=== PATIENT | female | born 1960 | race Caucasian/White ===

== ENCOUNTER 2017-04-11 03:33 | Emergency (ER) | payer SELFPAY ==
[2017-04-11] MEDS ORDERED: ROCURONIUM BROMIDE INJ 50 MG/5 ML VIAL IV ONE ×2 (03:40→06:00)
[2017-04-11] MEDS: MAGNESIUM SULFATE/D5W 100 ML IV SCH ×2 (03:40→04:00)
[2017-04-11] MEDS ORDERED: FENTANYL CITRATE INJ/PF 100 MCG/2 ML AMPUL ONE ×2 (03:44→06:26)
[2017-04-11] MEDS ORDERED: PROPOFOL 100 ML IV ONE ×2 (03:44→06:40)
[2017-04-11] MEDS ORDERED: METHYLPREDNISOLONE INJ 125 MG/2 ML SDV IV ONE (03:45)
[2017-04-11] MEDS ORDERED: IPRATROPIUM/ALBUTEROL 0.5-2.5 MG/3 ML AMPUL NEB ONE (03:45)
[2017-04-11] MEDS ORDERED: NORMAL SALINE 1000 ML 1,000 ML IV ONE (03:46)
--- NOTE | 2017-04-11 03:49 | ER Document Report ---
ED General - General Stated Complaint: RESPITORY DISTRESS Time Seen by Provider: 04/11/17 03:44 Notes: 56-year-old female with unknown medical history but most likely asthma per EMS presents with respiratory distress and hypoxia. She was sat down with a saturation in the 40s. Did not tolerate CPAP so brought him with facemask. They have no meds and no history and no family. Please note history limited by patient acuity. TRAVEL OUTSIDE OF THE [place] IN LAST 30 DAYS: No - Related Data Allergies/Adverse Reactions: No Known Allergies Allergy (Verified 12/01/14 18:53) Past Medical History - Social History Smoking Status: Current Every Day Smoker Family History: Reviewed & Not Pertinent, Other - Past Medical History Cardiac Medical History: Reports: Hx Hypertension Psychiatric Medical History: Reports: Hx Bipolar Disorder Past Surgical History: Reports: Hx Appendectomy, Hx Hysterectomy Review of Systems - Review of Systems Notes: REVIEW OF SYSTEMS is limited by patient acuity PHYSICAL EXAMINATION General: Acute distress horrible appearing Head: Atraumatic, normocephalic ENT: Mouth normal, oropharynx moist, no exudates or tonsillar enlargement Eyes: Conjunctiva normal, pupils equal, lids normal Neck: No JVD, supple, no guarding CVS: Normal rate, regular rhythm, no murmurs Resp: Heaving respirations, bradycardia apneic, coarse breath sounds with little air movement bilaterally GI: Nondistended, soft, no tenderness to palpation, no rebound or guarding Ext: No deformities, no edema, normal range of motion in upper and lower ext Back: No CVA or midline TTP Skin: N cool and mottled Lymphatic: No lymphadeopathy noted Neuro: A encephalopathic not responding. Moving all extremities with intermittent flailing movements. Physical Exam - Vital signs Vitals: Resp Pulse Ox 42 H 96 04/11/17 03:37 04/11/17 03:37 Course - Re-evaluation Re-evalutation: 04/11/17 03:48 Patient critically ill seen immediately by me upon arrival. Respiratory distress with decreased air movement and reported history of asthma. Patient was hypertensive and is wearing Nitropaste. She is moving very little air. She was given IV ketamine and placed on CPAP for preoxygenation. Given the chances of severe asthma I also gave her a dose of intramuscular epinephrine. Patient responded well to ketamine, oxygenated nicely and was intubated without issue. Please see procedure note. Workup will include labs chest x-ray EKG. Will treat with propofol drip, fentanyl pushes for discomfort, and give steroids and in-line nebulizer treatments as well as magnesium for severe asthma exacerbation. 04/11/17 04:20 Patient reassessed 3 times between 4 AM at 4:20 AM. Initially she was quite stable on the ventilator. I heard left-sided breath sounds decreased but she had good lung sliding on my ultrasound. Chest x-ray is pending. Labs show a severe respiratory acidosis. At this point her heart rate is still in the 170s and she has a stable blood pressure with a saturation of 92%. She is on appropriate Yanni settings for asthma. An EKG is difficult to interpret so I slowed the machine down in order to space apart the complexes and found that the patient was in SVT. She was cardioverted with a single dose of adenosine but flipped back into SVT within 5 minutes. 04/11/17 05:00 Patient was given verapamil 2 and did not convert. Her vitals remained normal in terms of blood pressure being high. She was then cardioverted electrically twice without conversion. Will try diltiazem drip. Care will transition to Dr. Merida who accepted the patient. - Vital Signs Vital signs: Temp Pulse Resp BP Pulse Ox 99.1 F 19 155/95 H 92 04/11/17 04:05 04/11/17 04:05 04/11/17 04:01 04/11/17 04:05 - Laboratory Result Diagrams: 04/11/17 03:35 04/11/17 03:35 Laboratory results interpreted by me: 04/11/17 04/11/17 04/11/17 03:35 03:35 03:35 WBC 18.9 H RDW 14.4 H Seg Neutrophils % 39.0 L Lymphocytes % 47.1 H Absolute Lymphocytes 8.9 H Absolute Monocytes 2.1 H VBG pH VBG pCO2 Sodium 145.3 H Glucose 243 H NT-Pro-B Natriuret Pep 4280 H 04/11/17 03:35 WBC RDW Seg Neutrophils % Lymphocytes % Absolute Lymphocytes Absolute Monocytes VBG pH 6.91 L* VBG pCO2 129.5 H* Sodium Glucose NT-Pro-B Natriuret Pep Procedures - Intubation Orotracheal Time of Intubation: 04:00 Mallampati Classification: Class 2 Medications: Ketamine, Other - Rocuronium Intubation method: Orotracheal Blade type: Huey Blade size: 3 Equipment used: Glidescope ETT size: 7.5 ETT secured at: Teeth ETT secured at (cm): 22 Breath Sounds after Intubation: Right greater than left End tidal CO2 confirmed: Yes Ventilator settings: SIMV - See chart for exact settings - Additional Procedures Cardioversion/Defib Time performed: 04:45 Additional Procedures: Cardioversion/defib - Patient was cardioverted using 150 J then 200 J. Total of 2 attempts. Rate/rhythm did not change. Tolerated well. Sedated with propofol and intubated prior to procedure. Critical Care Note - Critical Care Note Total time excluding time spent on procedures (mins): 80 Comments: The above patient is critically ill. Not including procedures, but including direct re-evaluations, speaking with patient and/or consultants, interpreting results, and documenting, I spent the total amount of minute listed listed above on critical care time Discharge - Discharge Clinical Impression: Supraventricular tachycardia, Asthma with acute exacerbation in adult Hypercapnic respiratory failure Qualifiers: Chronicity: acute Qualified Code(s): J96.02 - Acute respiratory failure with hypercapnia Admitting Provider: [place] [facility] Admitted: ICU
[2017-04-11 03:51] LABS: ABSOLUTE BASOPHILS # (AUTO) 0.1 10^3/uL (0.0-0.2); ABSOLUTE EOSINOPHILS # (AUTO) 0.5 10^3/uL (0.0-0.6); ABSOLUTE LYMPHOCYTES (AUTO) 8.9 10^3/uL (0.5-4.7); ABSOLUTE MONOCYTES (AUTO) 2.1 10^3/uL (0.1-1.4); ABSOLUTE NEUT (AUTO) 7.4 10^3/uL (1.7-8.2); BASOPHILS % (AUTO) 0.3 % (0-2); EOSINOPHILS % (AUTO) 2.7 % (0-6); HEMOGLOBIN 13.5 g/dL (12.0-15.5); HGB HCT DIFFERENCE -1.5; LYMPHOCYTES % (AUTO) 47.1 % (13-45); MEAN CORPUSCULAR HEMOGLOBIN 27.9 pg (27.0-33.4); MEAN CORPUSCULAR HGB CONC 32.2 g/dL (32.0-36.0); MEAN CORPUSCULAR VOLUME 87 fl (80-97); MONOCYTES % (AUTO) 10.9 % (3-13); RED BLOOD COUNT 4.85 10^6/uL (3.72-5.28); RED CELL DISTRIBUTION WIDTH 14.4 % (11.5-14.0); WHITE BLOOD COUNT 18.9 10^3/uL (4.0-10.5)
[2017-04-11] MEDS ORDERED: ALBUTEROL SULFATE 0.083% NEB 2.5 MG/3 ML AMPUL NEB ONE (03:55)
[2017-04-11 04:02] LABS: VENOUS BLOOD BASE EXCESS -10.8 mmol/L; VENOUS BLOOD HCO3 25.3 mmol/L (20-32)
[2017-04-11 04:04] LABS: VENOUS BLOOD PCO2 129.5 mmHg (35-63); VENOUS BLOOD PH 6.91 (7.30-7.42)
[2017-04-11] MEDS ORDERED: ADENOSINE INJ/PF 6 MG/2 ML SDV IV ONE (04:11)
[2017-04-11 04:14] LABS: ANION GAP 17 (5-19); BLOOD UREA NITROGEN 12 mg/dL (7-20); CALCIUM 9.7 mg/dL (8.4-10.2); CARBON DIOXIDE 22 mmol/L (22-30); CHLORIDE 106 mmol/L (98-107); CREATININE RESULT 0.72 mg/dL (0.52-1.25); GLUCOSE 243 mg/dL (75-110); POTASSIUM 3.8 mmol/L (3.6-5.0); SODIUM 145.3 mmol/L (137-145)
[2017-04-11] MEDS ORDERED: VERAPAMIL HCL INJ/PF 5 MG/2 ML SDV IV ONE ×2 (04:20→04:23)
[2017-04-11 04:35] LABS: TROPONIN I 0.052 ng/mL
--- NOTE | 2017-04-11 04:46 | RADIOLOGY REPORT (SQ) ---
EXAM DESCRIPTION: CHEST SINGLE VIEW COMPLETED DATE/TIME: 04/11/2017 4:03 am REASON FOR STUDY: intub asthma? COMPARISON: None. EXAM PARAMETERS: NUMBER OF VIEWS: One view. TECHNIQUE: Single frontal radiographic view of the chest acquired. RADIATION DOSE: NA LIMITATIONS: None. FINDINGS: LUNGS AND PLEURA: Moderate mixed interstitial and airspace opacity with lower lobe predomi nance extensively of both lung valadez. MEDIASTINUM AND HILAR STRUCTURES: No masses. Contour normal. HEART AND VASCULAR STRUCTURES: Heart normal in size. Normal vasculature. BONES: No acute findings. HARDWARE: Adequate appearing endotracheal tube. Likely adequate NG tube. OTHER: No other significant finding. IMPRESSION: Extensive moderate mixed interstitial and airspace opacity of both lung valadez. Differe ntial diagnosis includes pulmonary edema, multifocal pneumonia, and/or chronic interstitial lung dise ase. Lines and tubes. TECHNICAL DOCUMENTATION: JOB ID: [id number]
[2017-04-11] MEDS ORDERED: DILTIAZEM HCL/D5W 125 ML IV PRN (04:59)
[2017-04-11] MEDS ORDERED: DILTIAZEM HCL INJ 25 MG/5 ML VIAL IV ONE (04:59)
[2017-04-11 05:05] LABS: ADD ON TESTING BLD IN LAB ACKNOWLEDGE
[2017-04-11 05:12] LABS: ALANINE AMINOTRANSFERASE 40 U/L (9-52); ALKALINE PHOSPHATASE 199 U/L (38-126); ASPARTATE AMINO TRANSFERASE 47 U/L (14-36); BILIRUBIN,DIRECT 0.6 mg/dL (0.0-0.4); BILIRUBIN,TOTAL 0.9 mg/dL (0.2-1.3); TOTAL PROTEIN 6.6 g/dL (6.3-8.2)
[2017-04-11] MEDS ORDERED: METOPROLOL TARTRATE PF/INJ 5 MG/5 ML SDV IV ONE (05:34)
[2017-04-11] MEDS ORDERED: EPINEPHRINE INJ/PF 1 MG/1 ML AMPULE ONE (05:37)
[2017-04-11] MEDS ORDERED: KETAMINE HCL INJ 500 MG/10 ML VIAL ONE (05:40)
[2017-04-11 06:22] VITALS: BP 164/94
--- NOTE | 2017-04-11 08:49 | Progress Note ---
Provider Note Provider Note: April 11, 2017: At 5:27 AM this morning, prior to my seeing the patient, I was contacted by phone by the evaluating and treating emergency room physician. By his description, despite cardioversion 3 along with multiple medications, she remained in SVT. He stated that he planned to transfer patient to a tertiary center. I concurred. Patient was subsequently airlifted to tertiary center.
--- NOTE | 2017-04-11 11:12 | EKG REPORT ---
SEVERITY:- ABNORMAL ECG - SINUS TACHYCARDIA LEFT ATRIAL ABNORMALITY ANTERIOR INFARCT, AGE INDETERMINATE : Confirmed by: Karie Ivy MD 11-Apr-2017 11:11:57
--- NOTE | 2017-04-11 11:12 | EKG REPORT ---
SEVERITY:- ABNORMAL ECG - SUPRAVENTRICULAR TACHYCARDIA PROBABLE LEFT VENTRICULAR HYPERTROPHY CONSIDER ANTERIOR INFARCT : Confirmed by: Karie Ivy MD 11-Apr-2017 11:12:03
--- NOTE | 2017-04-11 11:13 | EKG REPORT ---
SEVERITY:- ABNORMAL ECG - SINUS TACHYCARDIA FIRST DEGREE AV BLOCK PROBABLE LEFT ATRIAL ABNORMALITY CONSIDER ANTERIOR INFARCT BORDERLINE ST DEPRESSION, ANTEROLATERAL LEADS PROLONGED QT INTERVAL : Confirmed by: Karie Ivy MD 11-Apr-2017 11:12:43
== END 2017-04-11 06:51 | disposition short-term general hospital (02) ==
LOC: ER 03:33 → EH 04:50 → UNDOADMIN 04:50 → UNDODISIN 06:50 → EH 06:51
PROC: 0BH18EZ Insertion of Endotracheal Airway into Trachea, Via Natural or Artificial Opening Endoscopic (ICD-10-PCS; principal; 2017-04-11)
DX: I47.1 Supraventricular tachycardia (principal); J96.02 Acute respiratory failure with hypercapnia; J45.901 Unspecified asthma with (acute) exacerbation; E87.2 Acidosis; I10 Essential (primary) hypertension; F17.200 Nicotine dependence, unspecified, uncomplicated; R00.1 Bradycardia, unspecified
CPT/HCPCS: 93005 ×2; 94640 ×2; 99291; 99292; 96375; 96365; 96367; 36415; 83735; 85025; 80076; 80048; 84484; 82803; 83880; 71010; 93010; 31500; J3490 ×6; J0171; J3010; J2704; J2930; J3475; J7030; J0153; J7620; 94002

== ENCOUNTER 2017-04-17 20:41 | Emergency (ER) | payer SELFPAY ==
[2017-04-17] MEDS ORDERED: NYSTATIN/DEXAMETH/DIPHEN SUSP 120 ML PO ONE ×2 (22:12→22:49)
--- NOTE | 2017-04-17 22:16 | ER Document Report ---
ED ENT - General Chief Complaint: Sore Throat Stated Complaint: SORE THROAT Time Seen by Provider: 04/17/17 21:35 Mode of Arrival: Ambulatory Information source: Patient TRAVEL OUTSIDE OF THE [place] IN LAST 30 DAYS: No - HPI Patient complains to provider of: Throat problem Onset/Duration: Gradual Quality of pain: Achy Severity: Moderate Pain Level: 3 Associated symptoms: Sore throat Similar symptoms previously: No Recently seen / treated by doctor: Yes Notes: Patient is a 56-year-old female presenting to the emergency room complaining of throat and mouth pain that has been going on for the past 4-5 days, she was seen at this emergency room on 04/11/2017, at which point in time she was in respiratory distress requiring intubation and transfer to tertiary care center for persistent SVT, she states she has not smoked since then, but began invading instead, since then she has developed increased redness with white spots in the back of her throat, increased pain, difficulty swallowing, and pain to her tongue as well - Related Data Allergies/Adverse Reactions: vancomycin Allergy (Verified 04/17/17 21:11) Past Medical History - General Information source: Patient - Social History Smoking Status: Former Smoker Family History: Reviewed & Not Pertinent, Other - Past Medical History Cardiac Medical History: Reports: Hx Hypertension Pulmonary Medical History: Reports: Hx Asthma Renal/ Medical History: Denies: Hx Peritoneal Dialysis Psychiatric Medical History: Reports: Hx Bipolar Disorder Past Surgical History: Reports: Hx Appendectomy, Hx Hysterectomy Review of Systems - Review of Systems Constitutional: No symptoms reported EENT: See HPI Cardiovascular: No symptoms reported Respiratory: No symptoms reported Gastrointestinal: No symptoms reported Genitourinary: No symptoms reported Female Genitourinary: No symptoms reported Musculoskeletal: No symptoms reported Skin: No symptoms reported Hematologic/Lymphatic: No symptoms reported Neurological/Psychological: No symptoms reported -: Yes All other systems reviewed and negative Physical Exam - Vital signs Vitals: Temp Pulse Resp BP Pulse Ox 98.1 F 62 14 142/66 H 98 04/17/17 21:13 04/17/17 21:13 04/17/17 21:13 04/17/17 21:13 04/17/17 21:13 - Notes Notes: - General General appearance: Appears well, Alert In distress: None - HEENT Head: Normocephalic, Atraumatic Eyes: Normal Conjunctiva: Normal Extraocular movements intact: Yes Eyelashes: Normal Pupils: PERRL - Respiratory Respiratory status: No respiratory distress - Cardiovascular Rhythm: Regular - Abdominal Inspection: Normal - Back Back: Normal - Extremities General upper extremity: Normal inspection General lower extremity: Normal inspection - Neurological Neuro grossly intact: Yes Orientation: AAOx4 Chadron Coma Scale Eye Opening: Spontaneous Essence Coma Scale Verbal: Oriented Chadron Coma Scale Motor: Obeys Commands Chadron Coma Scale Total: 15 - Psychological Associated symptoms: Normal affect, Normal mood - Skin Skin Temperature: Warm Skin Moisture: Dry Skin Color: Normal - HEENT Mouth/Lips: Other - Several enlarged taste buds on tongue Pharynx: Erythema, Exudate. No: Potential airway comprom. Course - Re-evaluation Re-evalutation: 04/17/17 22:43 Patient with posterior pharynx erythema with exudates, possible strep throat infection, she was recently intubated, therefore was started on antibiotics, and as well as given a prescription for Magic mouthwash, advised to follow-up with her primary care provider, return if symptoms worsen, patient acknowledges understanding and agreement with this plan - Vital Signs Vital signs: Temp Pulse Resp BP Pulse Ox 98.1 F 62 14 142/66 H 98 04/17/17 21:13 04/17/17 21:13 04/17/17 21:13 04/17/17 21:13 04/17/17 21:13 Discharge - Discharge Clinical Impression: Strep pharyngitis Condition: Stable Disposition: HOME, SELF-CARE Instructions: Sore Throat ([facility]), Strep Throat ([facility]) Additional Instructions: Follow up with your primary care provider in one to 2 days. Return to the emergency room immediately if symptoms worsen or any additional concerns. Prescriptions: Nystatin/Dexameth/Diphen [Magic Mouthwash ([facility] Formula) Susp] 5 ml PO QID #120 ml Penicillin V Potassium [Penicillin Vk 500 mg Tablet] 500 mg PO BID #20 tablet Forms: Smoking Cessation Education
[2017-04-18 03:16] VITALS: BP 154/53
== END 2017-04-17 22:55 | disposition home or self-care (01) ==
LOC: ER 20:41
DX: J02.0 Streptococcal pharyngitis (principal); K08.89 Other specified disorders of teeth and supporting structures; J02.9 Acute pharyngitis, unspecified; Z87.891 Personal history of nicotine dependence
CPT/HCPCS: 99282; J3490

== ENCOUNTER 2017-05-07 20:12 | Emergency (ER) | payer SELFPAY ==
[2017-05-07] MEDS ORDERED: GABAPENTIN 300 MG CAPSULE PO ONE (20:51)
[2017-05-07] MEDS ORDERED: CLONIDINE 0.1 MG/24 HR PATCH.TDWK TD ONE (20:51)
[2017-05-07] MEDS ORDERED: ONDANSETRON 4 MG TAB.RAPDIS PO ONE (21:08)
[2017-05-07] MEDS ORDERED: DIAZEPAM 5 MG TABLET PO ONE (21:09)
--- NOTE | 2017-05-07 21:09 | ER Document Report ---
ED General - General Chief Complaint: Back Pain Stated Complaint: BACK AND LEG PAIN Time Seen by Provider: 05/07/17 20:22 Notes: Patient is a 56 year old female with a history of opiate dependence currently on Suboxone therapy who ran out of her Suboxone 2 days ago. States that her prescription was scheduled to run out on the but her primary doctor canceled her appointment for refills and has not rescheduled until Wednesday of next week. States she is been having severe tremulousness, nausea, vomiting and diffuse body pain for the last 3 days it has gotten increasingly worse. She has not tried anything to relieve her symptoms nothing worsens her symptoms. She states this feels similar to when she has run out of opiates in the past. Denies any suicidal homicidal ideation. Denies any chest pain or shortness of breath. Denies getting illicit drugs to resolve her symptoms. TRAVEL OUTSIDE OF THE [place] IN LAST 30 DAYS: No - Related Data Allergies/Adverse Reactions: vancomycin Allergy (Verified 04/17/17 21:11) Past Medical History - General Information source: Patient - Social History Smoking Status: Current Every Day Smoker Frequency of alcohol use: None Drug Abuse: None Lives with: Spouse/Significant other Family History: Reviewed & Not Pertinent, Other Patient has suicidal ideation: No Patient has homicidal ideation: No - Past Medical History Cardiac Medical History: Reports: Hx Hypertension Pulmonary Medical History: Reports: Hx Asthma Renal/ Medical History: Denies: Hx Peritoneal Dialysis Psychiatric Medical History: Reports: Hx Bipolar Disorder Past Surgical History: Reports: Hx Appendectomy, Hx Hysterectomy Review of Systems - Review of Systems Notes: Constitutional: Negative for fever. HENT: Negative for sore throat. Eyes: Negative for visual changes. Cardiovascular: Negative for chest pain. Respiratory: Negative for shortness of breath. Gastrointestinal: Negative for abdominal pain, positive for vomiting and diarrhea Genitourinary: Negative for dysuria. Musculoskeletal: Negative for back pain. Skin: Negative for rash. Neurological: Negative for headaches, weakness or numbness. 10 point ROS negative except as marked above and in HPI. Physical Exam - Vital signs Vitals: Temp Pulse Resp BP Pulse Ox 98.3 F 104 H 20 190/90 H 97 05/07/17 20:20 05/07/17 20:20 05/07/17 20:20 05/07/17 20:20 05/07/17 20:20 Interpretation: Hypertensive Notes: PHYSICAL EXAMINATION: GENERAL: Appears uncomfortable but no acute distress HEAD: Atraumatic, normocephalic. EYES: Pupils equal round and reactive to light, extraocular movements intact, sclera anicteric, conjunctiva are normal. ENT: nares patent, oropharynx clear without exudates. Moderately dry mucous membranes. NECK: Normal range of motion, supple without lymphadenopathy LUNGS: Breath sounds clear to auscultation bilaterally and equal. No wheezes rales or rhonchi. HEART: Regular rate and rhythm without murmurs ABDOMEN: Soft, nontender, normoactive bowel sounds. No guarding, no rebound. No masses appreciated. EXTREMITIES: Normal range of motion, no pitting or edema. No cyanosis. NEUROLOGICAL: No focal neurological deficits. Moves all extremities spontaneously and on command. PSYCH: Anxious, tremulous SKIN: Warm, Dry, normal turgor, no rashes or lesions noted. Course - Re-evaluation Re-evalutation: 05/07/17 21:08 Patient presents with symptoms consistent with an acute opiate withdrawal after she ran out of Suboxone 3 days ago. She is tremulous, tachycardic, hypertensive , appears quite uncomfortable. We unfortunately do not have Suboxone here in the emergency department. I have informed the patient I am not licensed Suboxone provider there are none in this emergency department. Her [place] controlled substance database does correlate with her report that she is out of Suboxone. Will provide gabapentin, clonidine, and work toward some symptomatic control. 05/07/17 22:03 Patient has had resolution of her withdrawal symptoms after menstruation of clonidine, gabapentin and Valium. I had an extensive conversation with this patient about her chronic opiate dependence and encouraged her to continue Suboxone therapy as she admits that she was considering getting heroin today when she could not get Suboxone. Again, patient is not drug-seeking here in the emergency department only asking for relief from her withdrawal symptoms. She plans to follow-up with her provider on Wednesday the refill her Suboxone. At this time will discharge with return precautions and follow-up recommendations. Verbal discharge instructions given a the bedside and opportunity for questions given. Medication warnings reviewed. Patient is in agreement with this plan and has verbalized understanding of return precautions and the need for primary care follow-up in the next 24-72 hours. - Vital Signs Vital signs: Temp Pulse Resp BP Pulse Ox 98.3 F 104 H 21 H 172/80 H 98 05/07/17 20:20 05/07/17 20:20 05/07/17 22:03 05/07/17 22:31 05/07/17 22:31 Discharge - Discharge Clinical Impression: Opiate dependence, continuous, Opiate withdrawal Condition: Fair Disposition: HOME, SELF-CARE Additional Instructions: Take gabapentin 600 mg nightly. Keep the clonidine patch on. You may take the Valium 5 mg 3 times daily as needed for withdrawal symptoms. You may also take Zofran as needed for nausea and vomiting. Please follow-up with your primary doctor regarding your Suboxone prescription as we discussed. Prescriptions: Gabapentin 600 mg PO QHS #5 tablet Diazepam [Valium 5 mg Tablet] 5 mg PO QIDP PRN #15 tablet PRN Reason:
[2017-05-07] MEDS ORDERED: ONDANSETRON ODT 4 MG TAB (6 TAB/DSPK) PO PRN (22:07)
[2017-05-07 22:51] VITALS: BP 172/80
== END 2017-05-07 22:51 | disposition home or self-care (01) ==
LOC: ER 20:12
DX: F11.23 Opioid dependence with withdrawal (principal); F17.200 Nicotine dependence, unspecified, uncomplicated; I10 Essential (primary) hypertension; J45.909 Unspecified asthma, uncomplicated; Z88.1 Allergy status to other antibiotic agents
CPT/HCPCS: 99283; S0119; J3490

== ENCOUNTER 2017-06-22 02:22 | Emergency (ER) | payer SELFPAY ==
[2017-06-22] MEDS ORDERED: MAGNESIUM SULFATE/D5W 1 GM/100 ML RTUPB IV ONE (02:25)
[2017-06-22] MEDS ORDERED: ALBUTEROL SULFATE 0.083% NEB 2.5 MG/3 ML AMPUL NEB ONE (02:25)
[2017-06-22] MEDS ORDERED: PROPOFOL 100 ML IV PRN (02:25)
--- NOTE | 2017-06-22 02:29 | ER Document Report ---
ED General - General Stated Complaint: DIFFICULTY BREATHING Notes: 56-year-old female presents via EMS intubated after a witnessed respiratory arrest. Patient is intubated and obtunded. Per EMS she was found while sleeping unresponsive by her daughter at about 2 AM. She does take opioids. She also has COPD. Her daughter stated that she was dusky blue and unresponsive. EMS found her with a respiratory rate of 6 and a saturation in the 60s. She did not respond to albuterol and was intubated with rocuronium and Versed given after the intubation, apparently she was so altered she did not need any meds to intubate her. To confirm a capnography. Also got Solu-Medrol and albuterol. Review of this patient's record shows that she was actually seen by me about 3 months ago for hypercapnic respiratory failure and SVT. At that time she was intubated and ventilated cardioverted multiple times given calcium blockers and finally cardioverted with IV beta-cheli. At that time she was flown out to an outside facility. TRAVEL OUTSIDE OF THE [place] IN LAST 30 DAYS: No - Related Data Allergies/Adverse Reactions: vancomycin Allergy (Verified 04/17/17 21:11) Past Medical History - Social History Smoking Status: Current Every Day Smoker Family History: Reviewed & Not Pertinent, Other - Past Medical History Cardiac Medical History: Reports: Hx Hypertension Pulmonary Medical History: Reports: Hx Asthma Renal/ Medical History: Denies: Hx Peritoneal Dialysis Psychiatric Medical History: Reports: Hx Bipolar Disorder Past Surgical History: Reports: Hx Appendectomy, Hx Hysterectomy Review of Systems - Review of Systems Notes: REVIEW OF SYSTEMS Unobtainable PHYSICAL EXAMINATION General: Pale obtunded intubated Head: Atraumatic, normocephalic ENT: Mouth normal, oropharynx moist, no exudates or tonsillar enlargement Eyes: Conjunctiva normal, pupils equal approximately 5 mm, lids normal Neck: Positive right-sided JVD, supple, no guarding CVS: Normal rate, regular rhythm, no murmurs Resp: Apneic but being bagged. Good breath sounds bilaterally with some rales on the right. There is some frothy sputum in the tube. GI: Nondistended, soft, no tenderness to palpation, no rebound or guarding Ext: No deformities, no edema, normal range of motion in upper and lower ext Back: No CVA or midline TTP Skin: No rash, warm Lymphatic: No lymphadeopathy noted Neuro: A dated and paralyzed -: Yes ROS unobtainable due to patient's medical condition Physical Exam - Vital signs Vitals: Resp Pulse Ox 12 100 06/22/17 02:24 06/22/17 02:24 Course - Re-evaluation Re-evalutation: 06/22/17 02:28 Patient presents intubated after a unwitnessed respiratory arrest. She had a pulse and tachycardia in the field but was hypoxic and bradykinetic. She is now intubated. Initially I confirm the tube placement by fog in the tube as well as bilateral breath sounds. Chest x-ray will be initiated. Patient was placed on the ventilator with COPD settings requested by me. This included a low respiratory rate as well as adequate expiratory time. Patient was immediately placed on a propofol drip for sedation. We will draw full spectrum of laboratory testing. Her differential at this time includes narcotic overdose as well as COPD versus other source of respiratory arrest. She will also have a brain CT to rule out bleed. At this time we did not give Narcan given that she is paralyzed. 06/22/17 02:55 Reassessed at 2:50 AM. Still in SVT per ECG. Labs showed a hyper carbonic respiratory acidosis. She is already down to the 60s on her CO2 per her end tidal we will continue to ventilate her as such. She does not have a pneumothorax and the tube is well placed on the x-ray however she does look like she might have a small amount of pulmonary edema. I will add a BNP. I attempted to cardiovert the patient twice while sedated, and she remains in SVT. I ordered some verapamil. Last time she did not respond to cardioversion or calcium blockers but did respond to beta blockers. Despite the fact that she does have COPD, I think it is important to convert her rhythm and is that she might have cardiomyopathy. Will pursue beta-cheli if the verapamil does not work. 06/22/17 03:[address] Merida at 3:15 AM. He said "I am sorry I cannot help you." When asked him if he was refusing the admission, his phone cut out. I called him back in the call was declined. I asked the charge nurse to page the engineering administrator distribution analyst. I then spoke with the [facility] transfer center in an effort to admit this patient to an ICU. Spoke with patient's daughter who stated that the patient is relapsed with smoking. 06/22/17 04:19 Dr. Merida called back in approximately 330. Stating that he had not in fact refuse the patient but is too busy to see the patient right now. He requested a hold the patient in the ED under my own care until about 5 AM at which point he would accept and admit the patient. I found this reasonably agreeable. I called [facility] to cancel the transfer. Patient was reassessed at 4:15 AM. She seems to have gone back into SVT having previously been into sinus rhythm. Will re-dose metoprolol. Otherwise she appears comfortable. Will repeat gas. 06/22/17 05:[address] Merida at [phone]. He stated he needs to get more work done before he talks about this patient accepts the patient. He states he will call me "in a bit." The patient remains clinically stable I will repeat her ABG, and take a look at her CT which was just done. He remains in sinus rhythm with a rate of about 120. 06/22/17 05:25 Still in SVT. Discussed with Dr. Guadarrama. He thinks patient needs electrophysiology and to be transferred. Recommended esmolol drip. This will be started. Spoke with [facility], spoke with ICU Dr. Balderas at 5:30 AM. Accepted for transfer. Family updated. 06/22/17 05:43 - Vital Signs Vital signs: Temp Pulse Resp BP Pulse Ox 98.9 F 20 148/82 H 92 06/22/17 05:40 06/22/17 05:40 06/22/17 05:38 06/22/17 05:40 - Laboratory Result Diagrams: 06/22/17 02:35 06/22/17 02:35 Laboratory results interpreted by me: 06/22/17 06/22/17 06/22/17 02:35 02:35 02:35 WBC 14.3 H Hgb 11.8 L MCHC 31.8 L RDW 15.6 H Seg Neuts % (Manual) 41 L Lymphocytes % (Manual) 54 H Monocytes % (Manual) 2 L Abs Lymphs (Manual) 7.7 H PT Carbonic Acid ABG pH ABG pCO2 ABG pO2 ABG HCO3 ABG O2 Saturation Sodium 150.4 H Chloride 109 H Carbon Dioxide 17 L Anion Gap 24 H Glucose 219 H Direct Bilirubin 0.7 H AST 38 H Alkaline Phosphatase 191 H NT-Pro-B Natriuret Pep 6690 H Total Protein 6.1 L 06/22/17 06/22/17 02:35 02:35 WBC Hgb MCHC RDW Seg Neuts % (Manual) Lymphocytes % (Manual) Monocytes % (Manual) Abs Lymphs (Manual) PT 15.5 H Carbonic Acid 2.91 H ABG pH 6.89 L* ABG pCO2 96.6 H* ABG pO2 202.4 H ABG HCO3 18.0 L ABG O2 Saturation 98.4 H Sodium Chloride Carbon Dioxide Anion Gap Glucose Direct Bilirubin AST Alkaline Phosphatase NT-Pro-B Natriuret Pep Total Protein - Diagnostic Test Radiology reviewed: Image reviewed, Reports reviewed Procedures - Additional Procedures Cardioversion/Defib Time performed: 03:00 - Approximate time Notes: 06/22/17 05:46 Indication: Supra ventricular tachycardia. Patient is sedated and intubated. Synchronous cardioversion performed once at 120 J then once at 140 J. No change in rhythm. Patient tolerated well. Critical Care Note - Critical Care Note Total time excluding time spent on procedures (mins): 125 Comments: The above patient is critically ill. Not including procedures, but including direct re-evaluations, speaking with patient and/or consultants, interpreting results, and documenting, I spent the total amount of minute listed listed above on critical care time Discharge - Discharge Clinical Impression: Supraventricular tachycardia Hypercapnic respiratory failure Qualifiers: Chronicity: acute Qualified Code(s): J96.02 - Acute respiratory failure with hypercapnia Condition: Critical Disposition: [facility]
[2017-06-22 02:50] LABS: ARTERIAL BLOOD BASE EXCESS -16.4 mmol/L; ARTERIAL BLOOD O2 SATURATION 98.4 % (94-98)
[2017-06-22] MEDS ORDERED: VERAPAMIL HCL INJ/PF 5 MG/2 ML SDV IV ONE (02:52)
[2017-06-22 02:53] LABS: HEMATOCRIT 37.1 % (36.0-47.0); HEMOGLOBIN 11.8 g/dL (12.0-15.5); HGB HCT DIFFERENCE -1.7; MEAN CORPUSCULAR HEMOGLOBIN 27.9 pg (27.0-33.4); MEAN CORPUSCULAR HGB CONC 31.8 g/dL (32.0-36.0); MEAN CORPUSCULAR VOLUME 88 fl (80-97); RED BLOOD COUNT 4.23 10^6/uL (3.72-5.28); RED CELL DISTRIBUTION WIDTH 15.6 % (11.5-14.0); WHITE BLOOD COUNT 14.3 10^3/uL (4.0-10.5)
[2017-06-22 02:54] LABS: PROTHROMBIN TIME 15.5 SEC (11.4-15.4)
[2017-06-22] MEDS ORDERED: METOPROLOL TARTRATE PF/INJ 5 MG/5 ML SDV IV ONE ×2 (02:58→04:19)
[2017-06-22 03:03] LABS: ALANINE AMINOTRANSFERASE 35 U/L (9-52); ALBUMIN 3.7 g/dL (3.5-5.0); ALKALINE PHOSPHATASE 191 U/L (38-126); ASPARTATE AMINO TRANSFERASE 38 U/L (14-36); BILIRUBIN,DIRECT 0.7 mg/dL (0.0-0.4); BILIRUBIN,TOTAL 0.8 mg/dL (0.2-1.3); BLOOD UREA NITROGEN 12 mg/dL (7-20); CALCIUM 9.8 mg/dL (8.4-10.2); CARBON DIOXIDE 17 mmol/L (22-30); CHLORIDE 109 mmol/L (98-107); CREATINE KINASE 38 U/L (30-135); CREATININE RESULT 0.61 mg/dL (0.52-1.25); GLUCOSE 219 mg/dL (75-110); TOTAL PROTEIN 6.1 g/dL (6.3-8.2)
[2017-06-22] MEDS ORDERED: ASPIRIN 600 MG SUPP, RECTAL PR ONE (03:11)
--- NOTE | 2017-06-22 03:12 | RADIOLOGY REPORT (SQ) ---
EXAM DESCRIPTION: CHEST SINGLE VIEW COMPLETED DATE/TIME: 06/22/2017 2:39 am REASON FOR STUDY: RESPIRATORY DIFF COMPARISON: 7.30.17 EXAM PARAMETERS: NUMBER OF VIEWS: One view. TECHNIQUE: Single frontal radiographic view of the chest acquired. RADIATION DOSE: NA LIMITATIONS: None. FINDINGS: LUNGS AND PLEURA: Moderate mixed interstitial and airspace opacities, right more than left . MEDIASTINUM AND HILAR STRUCTURES: No masses. Contour normal. HEART AND VASCULAR STRUCTURES: Prominent cardiac silhouette. BONES: No acute findings. HARDWARE: Adequate appearing endotracheal tube and NG tube. OTHER: No other significant finding. IMPRESSION: Moderate pulmonary edema pattern. Differential diagnosis includes with multifocal pneum onia and CHF. Lines and tubes. TECHNICAL DOCUMENTATION: JOB ID: [id number]
[2017-06-22 03:16] LABS: BASOPHILS % (MANUAL) 0 % (0-2); CREATINE KINASE MB 1.81 ng/mL (<4.55); EOSINOPHILS % (MANUAL) 3 % (0-6); LYMPHOCYTES % (MANUAL) 54 % (13-45); TOTAL CELLS COUNTED 100
[2017-06-22 03:18] LABS: ANISOCYTOSIS SLIGHT; BURR CELLS SLIGHT; OVALOCYTES SLIGHT; POIKILOCYTOSIS SLIGHT
[2017-06-22 03:20] LABS: POTASSIUM 4.3 mmol/L (3.6-5.0); SODIUM 150.4 mmol/L (137-145); TROPONIN I 0.1 ng/mL
[2017-06-22] MEDS ORDERED: ASPIRIN 325 MG TABLET NG ONE (03:23)
[2017-06-22 03:25] LABS: ANION GAP 24 (5-19)
[2017-06-22 05:14] LABS: URINE BARBITURATES SCREEN NEGATIVE; URINE METHADONE SCREEN NEGATIVE; URINE OPIATES LOW NEGATIVE; URINE PHENCYCLIDINE SCREEN NEGATIVE
--- NOTE | 2017-06-22 05:24 | RADIOLOGY REPORT (SQ) ---
EXAM DESCRIPTION: CT HEAD WITHOUT COMPLETED DATE/TIME: 06/22/2017 5:13 am REASON FOR STUDY: AMS COMPARISON: None. TECHNIQUE: Axial images acquired through the brain without intravenous contrast. Images reviewed wi th bone, brain and subdural windows. Images stored on PACS. All CT scanners at this facility use dose modulation, iterative reconstruction, and/or weight based d osing when appropriate to reduce radiation dose to as low as reasonably achievable (ALARA). [facility]: Dose Right [facility]: CareDose [facility]: Dose Right [facility]: Teradose 4D [facility]: [employer] RADIATION DOSE: Up-to-date CT equipment and radiation dose reduction techniques were employed. CTDIv ol: 55.3 mGy. DLP: 996 mGy-cm. mGy. LIMITATIONS: None. FINDINGS: VENTRICLES: Normal size and contour. CEREBRUM: No masses. No hemorrhage. No midline shift. No evidence for acute infarction. Normal gra y/white matter differentiation. No areas of low density in the white matter. CEREBELLUM: No masses. No hemorrhage. No alteration of density. No evidence for acute infarction. EXTRAAXIAL SPACES: No fluid collections. No masses. ORBITS AND GLOBE: No intra- or extraconal masses. Normal contour of globe without masses. CALVARIUM: No fracture. PARANASAL SINUSES: No fluid or mucosal thickening. SOFT TISSUES: No mass or hematoma. OTHER: Endotracheal and orogastric tubes. IMPRESSION: No acute intracranial findings. Lines and tubes. EVIDENCE OF ACUTE STROKE: NO. COMMENT: Quality ID # [id number]: Final reports with documentation of one or more dose reduction techniques (e.g., Automated exposure control, adjustment of the mA and/or kV according to patient size, use of iterative reconstruction technique) TECHNICAL DOCUMENTATION: JOB ID: [id number] [employer]- All Rights Reserved
[2017-06-22] MEDS ORDERED: ESMOLOL HCL/SOD CL 2,500 MG/250 ML RTUINJ IV PRN (05:25)
[2017-06-22 06:07] LABS: ARTERIAL BLOOD BASE EXCESS -10.4 mmol/L; ARTERIAL BLOOD O2 SATURATION 78.2 % (94-98)
[2017-06-22 06:27] LABS: APPEARANCE,URINE CLEAR; BILIRUBIN,URINE NEGATIVE (NEGATIVE); GLUCOSE, URINE NEGATIVE (NEGATIVE); KETONES,URINE NEGATIVE (NEGATIVE); LEUKOCYTE ESTERASE,URINE NEGATIVE (NEGATIVE); NITRITE,URINE NEGATIVE (NEGATIVE); PROTEIN,URINE NEGATIVE (NEGATIVE); URINE SPECIFIC GRAVITY 1.005
[2017-06-22] MEDS ORDERED: ACETAMINOPHEN 650 MG SUPP.RECT PR ONE (08:05)
--- NOTE | 2017-06-22 08:10 | EKG REPORT ---
SEVERITY:- ABNORMAL ECG - SINUS TACHYCARDIA PROBABLE LEFT ATRIAL ABNORMALITY PROBABLE LVH WITH SECONDARY REPOL ABNRM ANTERIOR Q WAVES, POSSIBLY DUE TO LVH : Confirmed by: Kory Crum MD 22-Jun-2017 08:10:16
--- NOTE | 2017-06-22 08:11 | EKG REPORT ---
SEVERITY:- ABNORMAL ECG - SUPRAVENTRICULAR TACHYCARDIA CONSIDER LEFT VENTRICULAR HYPERTROPHY VS OLD ANTERIOR NM : Confirmed by: Kory Crum MD 22-Jun-2017 08:11:08
[2017-06-22 08:29] VITALS: BP 125/75
== END 2017-06-22 08:44 | disposition short-term general hospital (02) ==
LOC: ER 02:22
PROC: 5A2204Z Restoration of Cardiac Rhythm, Single (ICD-10-PCS; principal; 2017-06-22)
DX: I47.1 Supraventricular tachycardia (principal); J96.02 Acute respiratory failure with hypercapnia; I10 Essential (primary) hypertension; J44.9 Chronic obstructive pulmonary disease, unspecified; Z88.3 Allergy status to other anti-infective agents; Z90.710 Acquired absence of both cervix and uterus
CPT/HCPCS: 93005; 36415; 82553; 82803; 82550; 85025; 85610; 80053; 81001; 84484; 80307; 83880; 71010; 70450; 93010; 94002; 92960; J2704; J3490 ×2; J3475

== ENCOUNTER 2017-07-27 11:44 | Emergency (ER) | payer SELFPAY ==
--- NOTE | 2017-07-27 12:36 | ER Document Report ---
HPI - HPI Patient complains to provider of: Left wrist pain and swelling Onset: Yesterday Onset/Duration: Sudden Pain Level: 4 Context: 56-year-old female with a history of polyarticular arthritis cannot stand the pain and swelling in her left wrist. She was seen in the emergency department recently for right wrist and right shoulder pain and now it is in her left wrist. She was given prednisone which she stopped because while she was hospitalized at [facility] they told her that the prednisone was a danger to her heart. States she cannot stand the pain anymore. No fever. No history of gout. Associated Symptoms: None Exacerbated by: Movement Relieved by: Denies Similar symptoms previously: No Recently seen / treated by doctor: No - ROS ROS below otherwise negative: Yes Systems Reviewed and Negative: Yes All other systems reviewed and negative - REPRODUCTIVE Reproductive: DENIES: : Past Medical History - General Information source: Patient - Social History Smoking Status: Current Every Day Smoker Frequency of alcohol use: None Drug Abuse: None Lives with: Family Family History: Reviewed & Not Pertinent, Other - Past Medical History Cardiac Medical History: Reports: Hx Hypertension Pulmonary Medical History: Reports: Hx Asthma Renal/ Medical History: Denies: Hx Peritoneal Dialysis Psychiatric Medical History: Reports: Hx Bipolar Disorder Past Surgical History: Reports: Hx Appendectomy, Hx Hysterectomy - Immunizations Hx Diphtheria, Pertussis, Tetanus Vaccination: Yes Vertical Provider Document - CONSTITUTIONAL Agree With Documented VS: Yes Exam Limitations: No Limitations General Appearance: Mild Distress Notes: Patient was asleep when I walked by the room earlier and is agitated during the history. - INFECTION CONTROL TRAVEL OUTSIDE OF THE [place] IN LAST 30 DAYS: No - HEENT HEENT: Normocephalic - NECK Neck: Supple - RESPIRATORY Respiratory: Breath Sounds Normal, No Respiratory Distress O2 Sat by Pulse Oximetry: 99 - CARDIOVASCULAR Cardiovascular: Regular Rate, Regular Rhythm - MUSCULOSKELETAL/EXTREMETIES Musculoskeletal/Extremeties: Tender, Edema - Warm left wrist it is not red, he has excoriations dorsal aspect of both hands that looks like she was scratching. - NEURO Level of Consciousness: Awake, Alert - DERM Integumentary: Warm, Dry Course - Re-evaluation Re-evalutation: 07/27/17 12:49 I checked the [place] controlled substance website the patient was given 56 oxycodone 10 mg on July 20 she was taking them every 4 hours and no longer has the oxycodone. She states she had a history of opiate dependency and was on buprenorphine 8 mg and [facility] wanted her to go back on now but she cannot afford it now. I explained to her that I could give her a few tramadol or Ultram for the pain and was checking for gout but that I would not be prescribing any opiates. 07/27/17 14:16 pt states that the splint helps some, wants a shot of something stronger 1 time in the ER, she states the oxycodone 10mg she ran out of were not working either. Uric acid is negative. will prescribe some ultram and to continue the motrin for inflammation, and referral to her rhematologist at [facility] 07/28/17 22:00 - Vital Signs Vital signs: Temp Pulse Resp BP Pulse Ox 98.3 F 61 18 174/66 H 99 07/27/17 11:49 07/27/17 11:49 07/27/17 11:49 07/27/17 11:49 07/27/17 11:49 - Laboratory Result Diagrams: 07/27/17 13:19 Discharge - Discharge Clinical Impression: Pain and swelling of left wrist Condition: Good Disposition: HOME, SELF-CARE Instructions: Acetaminophen, Anti-Inflammatory Medication ([facility]), Arthralgia ( [facility]), Temporary Splint ([facility]), Ultram ([facility]) Additional Instructions: see your rhuematologist tylenol motrin ice splint for comfort to er any concerns Prescriptions: Ibuprofen [Motrin 600 mg Tablet] 600 mg PO Q8HP PRN #30 tablet PRN Reason: Tramadol HCl [Ultram 50 mg Tablet] 50 mg PO ASDIR PRN #15 tablet PRN Reason:
[2017-07-27] MEDS ORDERED: ACETAMINOPHEN 325 MG TABLET PO ONE (12:45)
[2017-07-27] MEDS ORDERED: TRAMADOL HCL 50 MG TABLET PO ONE (12:45)
[2017-07-27] MEDS ORDERED: KETOROLAC TROMETHAMINE 60 MG/2 ML SDV IM ONE (12:45)
--- NOTE | 2017-07-27 13:16 | RADIOLOGY REPORT (SQ) ---
EXAM DESCRIPTION: WRIST LEFT 3 VIEWS COMPLETED DATE/TIME: 07/27/2017 1:05 pm REASON FOR STUDY: pain COMPARISON: None. NUMBER OF VIEWS: Three views. TECHNIQUE: AP, lateral, and oblique radiographic images acquired of the left wrist. LIMITATIONS: None. FINDINGS: MINERALIZATION: Normal. BONES: No acute fracture or dislocation. No worrisome bone lesions. Normal alignment. SOFT TISSUES: No soft tissue swelling. No foreign body. OTHER: No other significant finding. IMPRESSION: NEGATIVE STUDY OF THE LEFT WRIST. NO RADIOGRAPHIC EVIDENCE OF ACUTE INJURY. TECHNICAL DOCUMENTATION: JOB ID: [id number] [employer]- All Rights Reserved
[2017-07-27 13:51] LABS: ABSOLUTE BASOPHILS # (AUTO) 0.1 10^3/uL (0.0-0.2); ABSOLUTE LYMPHOCYTES (AUTO) 1.5 10^3/uL (0.5-4.7); ABSOLUTE MONOCYTES (AUTO) 0.8 10^3/uL (0.1-1.4); ABSOLUTE NEUT (AUTO) 7.8 10^3/uL (1.7-8.2); BASOPHILS % (AUTO) 0.5 % (0-2); EOSINOPHILS % (AUTO) 0.4 % (0-6); HEMATOCRIT 28.6 % (36.0-47.0); HEMOGLOBIN 9.9 g/dL (12.0-15.5); HGB HCT DIFFERENCE 1.1; LYMPHOCYTES % (AUTO) 14.4 % (13-45); MEAN CORPUSCULAR HEMOGLOBIN 29.4 pg (27.0-33.4); MEAN CORPUSCULAR HGB CONC 34.8 g/dL (32.0-36.0); MEAN CORPUSCULAR VOLUME 85 fl (80-97); MONOCYTES % (AUTO) 7.6 % (3-13); RED BLOOD COUNT 3.38 10^6/uL (3.72-5.28); RED CELL DISTRIBUTION WIDTH 17.7 % (11.5-14.0); SEGMENTED NEUTROPHILS % (AUTO) 77.1 % (42-78); WHITE BLOOD COUNT 10.2 10^3/uL (4.0-10.5)
[2017-07-27 14:32] VITALS: BP 188/65
== END 2017-07-27 14:32 | disposition home or self-care (01) ==
LOC: ER 11:44
DX: M25.532 Pain in left wrist (principal); M25.432 Effusion, left wrist; M19.90 Unspecified osteoarthritis, unspecified site; F17.200 Nicotine dependence, unspecified, uncomplicated; I10 Essential (primary) hypertension; J45.909 Unspecified asthma, uncomplicated
CPT/HCPCS: 99283; 96372; 36415; 84550; 85025; 73110; L3908; J1885

== ENCOUNTER 2017-08-09 21:43 | Emergency (ER) | payer SELFPAY ==
[2017-08-09] MEDS ORDERED: LISINOPRIL 10 MG TABLET PO ONE (23:17)
[2017-08-09] MEDS ORDERED: OXYCODONE HCL IR 5 MG TABLET PO ONE ×2 (23:17→23:40)
--- NOTE | 2017-08-09 23:19 | ER Document Report ---
ED General - General Chief Complaint: Blood Pressure Problem Stated Complaint: HIGH BLOOD PRESSURE Time Seen by Provider: 08/09/17 22:05 Notes: Patient is a 56-year-old female with a past medical history of hypothyroidism, essential hypertension, who presents with concerns about her elevated blood pressure. Patient reports over the past several days she has been checking her blood pressure at home using a cuff and is getting readings consistently in the 200 systolic. She states that she has been taking her blood pressure medications as directed but that this does not seem to be improving her blood pressure. She denies any associated symptoms including nausea, vomiting, chest pain, shortness of breath, headache, or altered mental status. She has not seen her primary care doctor regarding today's concerns. She states she has a history of severe hypertension and recently had multiple of her medications changed. TRAVEL OUTSIDE OF THE [place] IN LAST 30 DAYS: No - Related Data Allergies/Adverse Reactions: vancomycin Allergy (Verified 07/27/17 11:49) Past Medical History - General Information source: Patient - Social History Smoking Status: Never Smoker Frequency of alcohol use: None Drug Abuse: None Lives with: Family Family History: Reviewed & Not Pertinent, Other Patient has suicidal ideation: No Patient has homicidal ideation: No - Past Medical History Cardiac Medical History: Reports: Hx Hypertension Pulmonary Medical History: Reports: Hx Asthma Renal/ Medical History: Denies: Hx Peritoneal Dialysis Psychiatric Medical History: Reports: Hx Bipolar Disorder Past Surgical History: Reports: Hx Appendectomy, Hx Hysterectomy - Immunizations Hx Diphtheria, Pertussis, Tetanus Vaccination: Yes Review of Systems - Review of Systems Notes: Constitutional: Negative for fever. HENT: Negative for sore throat. Eyes: Negative for visual changes. Cardiovascular: Negative for chest pain. Respiratory: Negative for shortness of breath. Gastrointestinal: Negative for abdominal pain, vomiting or diarrhea. Genitourinary: Negative for dysuria. Musculoskeletal: Negative for back pain. Skin: Negative for rash. Neurological: Negative for headaches, weakness or numbness. 10 point ROS negative except as marked above and in HPI. Physical Exam - Vital signs Vitals: BP 204/95 H 08/09/17 21:49 Interpretation: Hypertensive Notes: PHYSICAL EXAMINATION: GENERAL: Well-appearing, well-nourished and in no acute distress. HEAD: Atraumatic, normocephalic. EYES: Pupils equal round and reactive to light, extraocular movements intact, sclera anicteric, conjunctiva are normal. ENT: nares patent, oropharynx clear without exudates. Moist mucous membranes. NECK: Normal range of motion, supple without lymphadenopathy LUNGS: Breath sounds clear to auscultation bilaterally and equal. No wheezes rales or rhonchi. HEART: Regular rate and rhythm without murmurs ABDOMEN: Soft, nontender, normoactive bowel sounds. No guarding, no rebound. No masses appreciated. EXTREMITIES: Normal range of motion, no pitting or edema. No cyanosis. NEUROLOGICAL: No focal neurological deficits. Moves all extremities spontaneously and on command. PSYCH: Normal mood, normal affect. SKIN: Warm, Dry, normal turgor, no rashes or lesions noted. Course - Re-evaluation Re-evalutation: 08/09/17 23:18 Presentation of asymptomatic hypertension. Patient denies any symptoms concerning for SAH, dissection, CO, or encephalopaty. Alert, oriented, and denies any symptoms at time of assessment. Normal neuro exam. Based on patient' s prior history of thyroid storm she has requested that thyroid labs be obtained and I will comply. Patient's blood pressure regimen at home is somewhat unusual as she is on hydralazine, isosorbide dinitrate, and propranolol for her blood pressure control. The propranolol does make sense in the context of a history of prior thyroid storm but it is unusual that she is not on any GUTIERREZ inhibitors, ARB's, or diuretics. Will start lisinopril here in the emergency department. I have discussed critical importance of follow up with PCP within 1 week and increased risk of devastating stroke, heart attack, respiratory distress, and other life threatening complications if blood pressure is not reduced appropriately. 08/10/17 00:58 Blood pressure is improved to 181/83. Laboratories do not show any evidence of acute thyroid storm. Patient remains otherwise well in appearance. Will discharge with a prescription for lisinopril. At this time will discharge with return precautions and follow-up recommendations. Verbal discharge instructions given a the bedside and opportunity for questions given. Medication warnings reviewed. Patient is in agreement with this plan and has verbalized understanding of return precautions and the need for primary care follow-up in the next 24-72 hours. - Vital Signs Vital signs: Temp Pulse Resp BP Pulse Ox 98.4 F 68 19 183/82 H 99 08/09/17 22:00 08/09/17 22:00 08/10/17 01:16 08/10/17 01:16 08/10/17 00:16 - Laboratory Result Diagrams: 08/09/17 23:12 Laboratory results interpreted by me: 08/09/17 08/09/17 23:12 23:12 Sodium 145.2 H Potassium 3.5 L Chloride 108 H BUN 6 L Creatinine 0.51 L TSH 32.60 H Free T4 0.40 L Discharge - Discharge Clinical Impression: Essential hypertension Condition: Good Disposition: HOME, SELF-CARE Additional Instructions: You were seen today for blood pressure that was high. This is a long-term risk factor for multiple medical problems including heart attack and stroke. However, the blood pressure in of itself will not cause you to have an acute stroke or heart attack over the course of just several days or weeks. You need to have a gradual reduction of your blood pressure back to normal levels over the next several months in conjunction with your primary care physician. Return if you develop headache, weakness, numbness, chest pain, pass out, or have any other symptoms that are concerning to you. Prescriptions: Lisinopril 20 mg PO DAILY #30 tablet
[2017-08-10 00:03] LABS: ANION GAP 10 (5-19); BLOOD UREA NITROGEN 6 mg/dL (7-20); CALCIUM 9.2 mg/dL (8.4-10.2); CARBON DIOXIDE 27 mmol/L (22-30); CHLORIDE 108 mmol/L (98-107); CREATININE RESULT 0.51 mg/dL (0.52-1.25); GLUCOSE 76 mg/dL (75-110); POTASSIUM 3.5 mmol/L (3.6-5.0); SODIUM 145.2 mmol/L (137-145)
[2017-08-10 00:34] LABS: THYROID STIMULATING HORMONE 32.6 uIU/mL (0.47-4.68)
[2017-08-10 01:25] VITALS: BP 183/82
== END 2017-08-10 01:26 | disposition home or self-care (01) ==
LOC: ER 21:43
DX: I10 Essential (primary) hypertension (principal); E03.9 Hypothyroidism, unspecified
CPT/HCPCS: 36415; 80048; 84439; 84443; 99284

== ENCOUNTER 2017-08-23 14:46 | Emergency (ER) | payer SELFPAY ==
--- NOTE | 2017-08-23 15:37 | ER Document Report ---
ED General - General Mode of Arrival: Ambulatory Information source: Patient TRAVEL OUTSIDE OF THE [place] IN LAST 30 DAYS: No - General Chief Complaint: Back Pain Stated Complaint: JOINT PAIN, BACK PAIN Time Seen by Provider: 08/23/17 15:27 Notes: Patient is a 57 year old female presenting to the emergency department complaining of chest heaviness. Patient states she need of medication refill of Oxycodone (15 mg). Patient states after a 1 month visit at [facility] for thyroid storms she was prescribed Suboxone. Patient states her PCP has stopped prescribing her medication and that she is supposed to start Suboxone treatment at [facility] in week. Patient states her chest pain is consistent with not having her medications. ( PEDRO LANCASTER) - Related Data Allergies/Adverse Reactions: vancomycin Allergy (Verified 08/23/17 14:48) Past Medical History - General Information source: Patient - Social History Smoking Status: Current Every Day Smoker Frequency of alcohol use: None Family History: Reviewed & Not Pertinent, Other Patient has suicidal ideation: No Patient has homicidal ideation: No - Past Medical History Cardiac Medical History: Reports: Hx Hypertension Pulmonary Medical History: Reports: Hx Asthma Psychiatric Medical History: Reports: Hx Bipolar Disorder Past Surgical History: Reports: Hx Appendectomy, Hx Hysterectomy - Immunizations Hx Diphtheria, Pertussis, Tetanus Vaccination: Yes Review of Systems - Review of Systems Constitutional: No symptoms reported EENT: No symptoms reported Cardiovascular: See HPI, Chest pain - chest heaviness Respiratory: No symptoms reported Gastrointestinal: No symptoms reported Genitourinary: No symptoms reported Female Genitourinary: No symptoms reported Musculoskeletal: No symptoms reported Skin: No symptoms reported Hematologic/Lymphatic: No symptoms reported Neurological/Psychological: No symptoms reported -: Yes All other systems reviewed and negative - Vital signs Vitals: Temp Pulse Resp BP Pulse Ox 98.1 F 72 18 195/87 H 99 08/23/17 15:15 08/23/17 15:15 08/23/17 15:15 08/23/17 15:15 08/23/17 15:15 Course - Re-evaluation Re-evalutation: 08/23/17 15:48 Patient is starting to show some signs of withdrawal. She has not taken her blood pressure medications. She refused cardiac evaluation with the chest discomfort stating this is what happens when her blood pressure gets high and she has not been able to take her medications yet. She understands I cannot rule out cardiac ischemia or other severe illness with quite a broad differential diagnosis. Reviewed her prescription profile she has been receiving small amounts of immediate release oxycodone 15 mg 3 times daily. I discussed with her I would not be able to continue to refill this. I have asked her to try and space this out so she can get back into a Suboxone program that apparently seemed to work before she had her problems with her thyroid storm. (ALLENLAVINIA Tucker) - Vital Signs Vital signs: Temp Pulse Resp BP Pulse Ox 98.1 F 72 18 195/87 H 99 08/23/17 15:15 08/23/17 15:15 08/23/17 15:15 08/23/17 15:15 08/23/17 15:15 Discharge - Discharge Clinical Impression: Medication requested, Elevated Blood pressure Condition: Good Disposition: HOME, SELF-CARE Additional Instructions: Return for any problems or concerns. Make sure you get follow-up for your Suboxone treatment as scheduled in 1 week. Further prescriptions will need to be through a primary care provider or the clinic. Prescriptions: Oxycodone HCl [Oxycodone HCl 10 MG Tablet] 10 mg PO Q8HP PRN #8 tablet PRN Reason: For Pain Scribe Documentation - Scribe Written by Cindy:: Cindy Mcpherson, 08/23/2017 15:44 acting as scribe for :: Allen
[2017-08-23] MEDS ORDERED: PROPRANOLOL HCL 10 MG TABLET PO ONE (15:44)
[2017-08-23] MEDS ORDERED: HYDRALAZINE HCL 25 MG TABLET PO ONE (15:45)
[2017-08-23] MEDS ORDERED: OXYCODONE HCL IR 5 MG TABLET PO ONE (15:46)
[2017-08-23] MEDS ORDERED: ISOSORBIDE DINITRATE 10 MG TABLET PO ONE (15:47)
[2017-08-23 16:37] VITALS: BP 185/76
== END 2017-08-23 16:32 | disposition home or self-care (01) ==
LOC: ER 14:46
DX: I10 Essential (primary) hypertension (principal); M54.9 Dorsalgia, unspecified; R07.9 Chest pain, unspecified; F17.200 Nicotine dependence, unspecified, uncomplicated; Z88.3 Allergy status to other anti-infective agents; Z90.710 Acquired absence of both cervix and uterus
CPT/HCPCS: 99282; J3490 ×2